=== PATIENT | male | born 1995 | race Caucasian/White ===

== ENCOUNTER → 2018-11-28 14:45 | Outpatient (CLI) | payer OTHER, SELFPAY ==
[2016-11-23 09:48] VITALS: BMI 24.0
--- NOTE | 2018-11-28 14:45 | SEP_PTH ---
PATIENT: FLOWER JOHN LOC: [facility] U#:[id number] AGE/SX: 29/M ROOM: RE11/28/[address]: Dr. Daniel Munguia MD : 1995 BED: DIS: SPEC #: [id number] RECD: 11/29/18 15:07 STATUS: DULCE JEAN #: [id number] MICHELLE: 11/28/18 14:[address]: Daniel Munguia DEPT: SURGICAL PATHOLOGY RECD BY: Yumiko Mortensen ENTERED: 11/30/18 09:50 SP TYPE: SEPTUM OTHR DR: Dr. Salinas Jeter MD [facility] Tissues: Nasal septum, NOS Procedures: Decalcification bone/plaque Surgery Specimen Level III HEADER OPERATION: Septoplasty, bilateral submucosal resection of inferior turbinates PRE-OP DIAGNOSIS: Deviated nasal septum, hypertrophy of nasal turbinates, nasal congestion TISSUE SUBMITTED: Septum MICROSCOPIC DIAGNOSIS Septum: Fragments of cartilage and bone, clinically deviated nasal septum. SJ:abraham 12/05/18 MICROSCOPIC DESCRIPTION Slides are reviewed. GROSS DESCRIPTION Received is one container labeled with the patient's name and not further designated. The specimen consists of multiple grayish-mohan cartilaginous bony fragments that in aggregate measure 2.5 x 1.9 x 0.2 cm. Gluer Machine Operator sections are submitted in two cassettes after decalcification. / FA:abraham 11/30/18 TC:5 CPT: 66180, 75650
== END ==
PROVIDERS: Family Provider Family Medicine; PCP Family Medicine; Referring Provider Otolaryngology; Visit Provider Otolaryngology
DX: J34.2 Deviated nasal septum (principal); J34.3 Hypertrophy of nasal turbinates
CPT/HCPCS: 88304; 88311